=== PATIENT | male | born 1990 | race Caucasian/White ===

== ENCOUNTER → 2018-11-11 | Outpatient (REF) | payer BC ==
[~2018-11-11] MED LIST: FAM20 PO; HYDR-653 PO; LOR5 PO; NO RTN MEDS; PRE10 PO; PROM-110 PO; TOBROD OP; [UNRECOGNIZED DRUG - CODE] PO
[2018-11-11 10:45] LABS: PLATELET COUNT, AUTOMATED 239 K/uL (150-450)
== END ==
PROVIDERS: ATTEND Family Medicine
DX: I49.9 Cardiac arrhythmia, unspecified (principal)
CPT/HCPCS: 82040; 82247; 82310; 82374; 82435; 82565; 82947; 84075; 84132; 84155; 84295; 84403; 84443; 84450; 84460; 84484; 84520; 85025